=== PATIENT | female | born 1965 | race Caucasian/White ===

== ENCOUNTER 2022-12-01 10:33 | Emergency (ER) | payer OTHER ==
[2022-12-01] MEDS ORDERED: Lorazepam 2 MG/ML VIAL ONE (11:08)
[2022-12-01 11:45] LABS: Bilirubin Neg (Negative); Blood, Urine Negative (Negative); Clarity Clear (Clear); Glucose, Urine (Dipstick) Normal (Negative); Ketone, Urine 50 mg/dL (Negative); Leukocyte Negative (Negative); Nitrite Negative (Negative); Protein, Urine (Dipstick) 30 mg/dl (Neg-Trace); Urobilinogen Normal mg/dL (Less than 2)
[2022-12-01 11:47] LABS: #Eosinphils 0.1 10x3/uL (0.0-0.5); #Monocytes 0.4 10x3/uL (0.0-1.1); #Neutrophils 5.7 10x3/uL (1.5-8.4); %Basophils 0.6 % (0.0-2.0); %Eosinophils 0.7 % (0.0-6.0); %Lymphocytes 12.8 % (18.0-47.0); %Monocytes 5.9 % (0.0-10.0); %Neutrophils 79.7 % (40.0-75.0); Hemoglobin 12.2 g/dL (12.0-15.5); Mean Corpuscular HGB CONC 32.8 g/dL (32.0-36.0); Mean Corpuscular Hemoglobin 29.8 pg (27.0-33.0); Mean Corpuscular Volume 90.7 fl (81.6-98.3); Platelet Count 298 10x3/uL (150-450); RBC Distribution Width 13.5 % (11.5-14.5); White Blood Cell (WBC) Count 7.1 10x3/uL (3.5-10.5)
[2022-12-01 11:52] LABS: Bacteria/HPF 3+ HPF (None Seen); CAUTI Indications for Culture Pelvic or flank pain; RBC/HPF 0-3 HPF (0-3); WBC/HPF 0-3 HPF (0-3)
[2022-12-01 11:53] LABS: Urine Culture Reflex No No
[2022-12-01 11:59] LABS: ALT (SGPT) 180 U/L (8-55); AST (SGOT) 165 U/L (5-34); Albumin 3.7 g/dL (3.5-5.0); Alkaline Phosphatase 211 U/L (40-110); Anion Gap 15 mmol/L (10-20); BUN (Urea Nitrogen) 11 mg/dL (9.8-20.1); Bilirubin, Total 0.6 mg/dL (0.2-1.2); Calc. Creatinine Clearance 0 mL/min (70-130); Calcium 8.2 mg/dL (7.8-10.44); Carbon Dioxide 21 mmol/L (22-29); Chloride 101 mmol/L (98-107); Estimated GFR 102; Globulin 2.3 g/dL (2.4-3.5); Glucose 136 mg/dL (70-105); Lipase 10 U/L (8-78); Sodium 133 mmol/L (136-145)
[2022-12-01] MEDS ORDERED: Morphine 4 MG/ML VIAL ONE ×2 (12:24→18:00)
[2022-12-01] MEDS ORDERED: Ondansetron PF 4 MG/2 ML Vial ONE (12:24)
[2022-12-01] MEDS ORDERED: Piperacillin/Tazobactam 4.5 GM VIAL ONE (15:59)
[2022-12-01] MEDS ORDERED: Ondansetron ODT 4 MG TAB SL PRN (19:45)
[2022-12-01] MEDS ORDERED: Acetaminophen 325 MG TAB PO PRN (19:45)
[2022-12-01] MEDS ORDERED: Ondansetron PF 4 MG/2 ML Vial IVP PRN (19:45)
== END 2022-12-01 18:58 | disposition short-term general hospital (02) ==
LOC: CSHERS 10:33
DX: C34.11 Malignant neoplasm of upper lobe, right bronchus or lung (principal); C85.23 Mediastinal (thymic) large B-cell lymphoma, intra-abdominal lymph nodes; K81.0 Acute cholecystitis; J91.8 Pleural effusion in other conditions classified elsewhere; I31.39 Other pericardial effusion (noninflammatory); I10 Essential (primary) hypertension; Z79.899 Other long term (current) drug therapy
CPT/HCPCS: 70491; 71045; 71260; 74018; 74177; 76705; 80053; 81001; 83690; 84484; 85025; 86140; 93005; 96361; 96365; 96375; 96376; J2060; J2270; J2405; J2543

== ENCOUNTER 2022-12-22 14:59 | Outpatient (CLI) | payer OTHER | END 2022-12-22 15:00 | disposition home or self-care (01) | LOC: CSHMAMMO 14:59 | PROVIDERS: ATTEND Family Medicine | DX: Z12.31 Encounter for screening mammogram for malignant neoplasm of breast (principal); Z85.118 Personal history of other malignant neoplasm of bronchus and lung | CPT/HCPCS: 77063; 77067 ==

== ENCOUNTER 2022-12-29 06:05 | Day surgery (SDC) | payer OTHER ==
[2022-12-28 10:34] VITALS: BMI 22.8
[2022-12-29] MEDS ORDERED: EPINEPHrine 1 MG/ML VIAL ONE (06:35)
[2022-12-29] MEDS ORDERED: Bupivacaine PF 0.5% 30 ML VIAL ONE (06:35)
[2022-12-29] MEDS ORDERED: CEFAZOLIN 2 GM VIAL ONE (06:56)
[2022-12-29] MEDS ORDERED: PROPOFOL 20 ML ONE (07:02)
[2022-12-29] MEDS ORDERED: fentaNYL 50 mcg/mL 1 mL Vial ONE (07:03)
[2022-12-29] MEDS ORDERED: Lidocaine 1% PF 5 ML VIAL ONE (07:03)
[2022-12-29] MEDS ORDERED: Ondansetron PF 4 MG/2 ML Vial ONE (07:31)
[2022-12-29] MEDS ORDERED: Dexamethasone 4 mg/ml Vial ONE (07:31)
[2022-12-29] MEDS ORDERED: Acetaminophen 325 MG TAB PO PRN (07:49)
[2022-12-29] MEDS ORDERED: HYDROcodone/Acetaminophen 5/325 mg Tablet PO PRN ×2 (07:49)
== END 2022-12-29 08:30 | disposition home or self-care (01) ==
LOC: CSHSDC 06:05
PROVIDERS: ATTEND Surgery
PROC: 0JH63WZ Insertion of Totally Implantable Vascular Access Device into Chest Subcutaneous Tissue and Fascia, Percutaneous Approach (ICD-10-PCS; principal; 2022-12-29)
DX: C18.9 Malignant neoplasm of colon, unspecified (principal); C34.11 Malignant neoplasm of upper lobe, right bronchus or lung; I31.39 Other pericardial effusion (noninflammatory); J44.9 Chronic obstructive pulmonary disease, unspecified; F41.9 Anxiety disorder, unspecified; K21.9 Gastro-esophageal reflux disease without esophagitis; Z90.710 Acquired absence of both cervix and uterus; Z90.49 Acquired absence of other specified parts of digestive tract; Z98.890 Other specified postprocedural states; Z87.891 Personal history of nicotine dependence; Z79.899 Other long term (current) drug therapy
CPT/HCPCS: 71045; C1788; J0171; J1100; J1642; J2405; J2704; J3010; S0020

== ENCOUNTER 2023-04-05 09:05 | Outpatient (CLI) | payer OTHER | END 2023-04-05 09:06 | disposition home or self-care (01) | LOC: CSHCP 09:05 | PROVIDERS: ATTEND Radiology Radiation Oncology | DX: C34.11 Malignant neoplasm of upper lobe, right bronchus or lung (principal); R94.2 Abnormal results of pulmonary function studies | CPT/HCPCS: 94010; 94726; 94729; 94760 ==

== ENCOUNTER 2024-02-16 08:01 | Outpatient (CLI) | payer OTHER ==
[2024-02-16] MEDS ORDERED: Iopamidol 300 61% 100 ML VIAL FS ONE (10:28)
== END 2024-02-16 08:02 | disposition home or self-care (01) ==
LOC: CSHCT 08:01
PROVIDERS: ATTEND Internal Medicine
DX: C34.11 Malignant neoplasm of upper lobe, right bronchus or lung (principal); J98.4 Other disorders of lung; K76.9 Liver disease, unspecified
CPT/HCPCS: 71260; 74177; Q9967

== ENCOUNTER 2024-05-08 08:03 | Outpatient (CLI) | payer OTHER ==
[2024-05-08] MEDS ORDERED: Iopamidol 300 61% 100 ML VIAL FS ONE (14:36)
== END 2024-05-08 08:04 | disposition home or self-care (01) ==
LOC: CSHCT 08:03
PROVIDERS: ATTEND Internal Medicine
DX: C34.11 Malignant neoplasm of upper lobe, right bronchus or lung (principal); K76.9 Liver disease, unspecified; K63.9 Disease of intestine, unspecified
CPT/HCPCS: 71260; 74177; Q9967

== ENCOUNTER 2025-01-07 14:22 | Outpatient (CLI) | payer OTHER | END 2025-01-07 14:23 | disposition home or self-care (01) | LOC: CSHRAD 14:22 | PROVIDERS: ATTEND Internal Medicine | DX: C34.11 Malignant neoplasm of upper lobe, right bronchus or lung (principal) | CPT/HCPCS: 71046 ==

== ENCOUNTER 2025-01-20 08:35 | Outpatient (CLI) | payer OTHER ==
[2025-01-20] MEDS ORDERED: Iopamidol 300 61% 100 ML VIAL FS ONE (09:47)
[2025-01-20 12:21] LABS: Estimated GFR - POC 84.0
== END 2025-01-20 08:36 | disposition home or self-care (01) ==
LOC: CSHCT 08:35
PROVIDERS: ATTEND Internal Medicine
DX: C34.11 Malignant neoplasm of upper lobe, right bronchus or lung (principal); K76.9 Liver disease, unspecified; M47.816 Spondylosis without myelopathy or radiculopathy, lumbar region; M48.061 Spinal stenosis, lumbar region without neurogenic claudication
CPT/HCPCS: 36415; 71260; 74177; 82565

== ENCOUNTER 2025-04-15 09:00 | Outpatient (CLI) | payer OTHER ==
[2025-04-15] MEDS ORDERED: Iopamidol 300 61% 100 ML VIAL FS ONE (09:51)
[2025-04-15 09:57] LABS: Estimated GFR - POC 103.0
== END 2025-04-15 09:01 | disposition home or self-care (01) ==
LOC: CSHCT 09:00
PROVIDERS: ATTEND Internal Medicine
DX: C34.11 Malignant neoplasm of upper lobe, right bronchus or lung (principal); R91.8 Other nonspecific abnormal finding of lung field
CPT/HCPCS: 36415; 71260; 74177; 82565